=== PATIENT | male | born 2000 | race Caucasian/White ===

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

== ENCOUNTER 2024-02-25 20:17 | Emergency (ER) | payer MEDICAID, OTHER | END 2024-02-25 21:57 | disposition left against medical advice (07) | LOC: JD.ED 20:17 | DX: S02.40DA Maxillary fracture, left side, initial encounter for closed fracture (principal); W19.XXXA Unspecified fall, initial encounter | CPT/HCPCS: 70486; 70486-26; 99283 ==

== ENCOUNTER 2024-02-25 22:31 | Emergency (ER) | payer SELFPAY ==
[2024-02-25] MEDS: cefTRIAXone 1 GM, Lidocaine 1% 2.1 ML IM ONE (22:53)
== END 2024-02-25 23:00 | disposition home or self-care (01) ==
LOC: JD.ED 22:31
DX: S02.40DD Maxillary fracture, left side, subsequent encounter for fracture with routine healing (principal); X58.XXXA Exposure to other specified factors, initial encounter
CPT/HCPCS: 96372; 99283; J0696; J3490